=== PATIENT | female | born 1955 | race Caucasian/White ===

== ENCOUNTER 2017-12-12 22:51 | Emergency (ER) | payer MEDICAID, SELFPAY ==
--- NOTE | 2017-12-12 23:04 | RAD_ITS ---
STUDY: X-RAY - LEFT KNEE REASON FOR EXAM: Female, 62 years old. Fall TECHNIQUE: 3 view(s) of the knee. COMPARISON: None. FINDINGS: There is an intra-articular fracture of the lateral tibial plateau which extends into the proximal tibia. There is a mildly impacted fracture of the proximal fibula. There is no dislocation. There is a moderate joint effusion. There are no radiodense foreign bodies. RAD/Knee 3 Views IMPRESSION: Intra-articular fracture of the lateral tibial plateau which extends into the proximal tibia. Mildly impacted fracture of the proximal fibula. Moderate joint effusion. Electronically Signed: Bakari Parmar, at 23:08 EDT Tel , Service support ,
--- NOTE | 2017-12-13 00:06 | ED.VISSUMM ---
- ER Visit Summary Date of Service: 12/13/17 Chief Complaint: Knee injury History of Present Illness: The patient is a 62 F who presents following a fall with left knee pain. Patient holds the knee bent and cannot straighten it. Patient denies any other injuries. Patient presents during computer downtime. Physical Examination: Afebrile vital signs are stable Gen: Well-nourished well-developed Head: Normocephalic atraumatic Eyes: Perrl EOMI ENT: TMs clear no rhinorrhea moist mucous membranes Neck: Supple no lymphadenopathy no JVD nontender CVS: Regular rate rhythm no murmurs normal S1-S2 Respiratory: No distress clear to auscultation bilaterally chest nontender Abdomen: Soft nontender nondistended normal bowel sounds no masses Back: Nontender Extremity: Left knee is bent. There is an effusion. The left patella appears subluxed laterally. There is no open skin Skin: Normal color no rash Neuro: alert orientated ?3 CN II-XII intact normal strength sensation reflexes gait cerebellar Psych: Anxious and tearful Test Results: 3 view knee demonstrates a lateral tibial plateau fracture and fibular head fracture. Emergency Department Course and Treatment: Patient sees morphine for pain. The patient provided informed consent for the use of propofol so we can straighten her leg. Patient received 1 mg/kg IV push. Once adequate sedation was achieved the leg was easily straightened. The patella slid into place. Knee immobilizer was applied. Patient referred to Dr. Derek Erickson. She will be placed on crutches and made nonweightbearing. She is to use [place] for pain control. Patient will be discharged home with her family. Impression: 1. Left lateral tibial plateau fracture 2. Left fibular head fracture This note was generated with [employer] dictation software. It may contain incorrect words, spelling, and punctuation that were not noted in review of the chart prior to signing ED Disposition - Plan for ED Patient: Disposition: Home or Assisted Living Instructions: ED Fx Knee Referrals: Derek Erickson, [STAFF PHYSICIAN] - As soon as possible
== END 2017-12-13 01:35 | disposition home or self-care (01) ==
PROVIDERS: Emergency Provider Emergency Medicine; Family Provider Family Medicine; PCP Family Medicine
DX: S83.002A Unspecified subluxation of left patella, initial encounter (principal); S82.142A Displaced bicondylar fracture of left tibia, initial encounter for closed fracture; S82.492A Other fracture of shaft of left fibula, initial encounter for closed fracture; W19.XXXA Unspecified fall, initial encounter; E66.9 Obesity, unspecified
CPT/HCPCS: 27599; 73562; 96374; 96375; 99285; J7030; J2405

== ENCOUNTER → 2017-12-17 11:06 | Outpatient (CLI) | payer MEDICAID, SELFPAY ==
--- NOTE | 2017-12-17 11:24 | CT_ITS ---
Exam: Noncontrast CT of the left lower extremity. 2-D and 3-D reconstructions. HISTORY: Proximal tibial fracture. COMPARISON: Radiographs 12/13/2017. DLP: 730 CTDI: 15.3 FINDINGS: Extensive comminuted fractures are seen across the proximal tibial metaphysis as seen on radiographs and involving both tibial plateaus with mild distraction of the lateral tibial plateau fractures. Fractures pass through the base of the tibial spines. 2 mm depression of the medial tibial articular surface. No depression of the lateral tibial articular surface. Comminuted and distracted fractures are seen of the proximal fibular head without disruption of the tibiofibular articulation. Normal appearance of the visualized patella and femur. Grossly normal visualized soft tissues. CT/Extremity Lower without Contra IMPRESSION: Extensively comminuted fractures throughout the proximal tibial metaphysis and proximal fibula with mildly distracted fragments of the lateral tibial plateau and moderately distracted fragments of the fibular head. Electronically Signed: Naldo Flood MD at 19:47 EDT , Service support ,
--- NOTE | 2017-12-17 11:40 | CT_ITS ---
Exam: Noncontrast CT of the left lower extremity. 2-D and 3-D reconstructions. HISTORY: Proximal tibial fracture. COMPARISON: Radiographs 12/13/2017. DLP: 730 CTDI: 15.3 FINDINGS: Extensive comminuted fractures are seen across the proximal tibial metaphysis as seen on radiographs and involving both tibial plateaus with mild distraction of the lateral tibial plateau fractures. Fractures pass through the base of the tibial spines. 2 mm depression of the medial tibial articular surface. No depression of the lateral tibial articular surface. Comminuted and distracted fractures are seen of the proximal fibular head without disruption of the tibiofibular articulation. Normal appearance of the visualized patella and femur. Grossly normal visualized soft tissues. CT/Coronals Sag Multi Obl 3-D Rec IMPRESSION: Extensively comminuted fractures throughout the proximal tibial metaphysis and proximal fibula with mildly distracted fragments of the lateral tibial plateau and moderately distracted fragments of the fibular head. Electronically Signed: Naldo Flood MD at 19:47 EDT , Service support ,
== END ==
PROVIDERS: Family Provider Family Medicine; PCP Family Medicine; Visit Provider Physician Assistant Surgical
DX: S82.142A Displaced bicondylar fracture of left tibia, initial encounter for closed fracture (principal)
CPT/HCPCS: 73700; 76377

== ENCOUNTER → 2021-04-03 11:47 | Outpatient (CLI) | payer SELFPAY ==
--- NOTE | 2021-04-02 | ASPS_PTH ---
PATIENT: TAMY RATLIFF LOC: [facility] U#:[id number] AGE/SX: 69/F ROOM: RE04/03/[address]: Dr. Farhat Tomlinson MD : 1955 BED: DIS: SPEC #: [id number] RECD: 04/03/21 11:25 STATUS: GENESIS LIZA #: [id number] DEYANIRA: 04/02/21 00:[address]: Farhat Tomlinson DEPT: CYTOLOGY RECD BY: Emmie Ward ENTERED: 04/03/21 12:41 SP TYPE: ASPIRATION OTHR DR: Dr. Armando Rm MD Tissues: A - Thyroid gland, NOS B - Thyroid gland, NOS Procedures: Special Stain Group II Cytology Other HEADER OPERATION: Ultrasound-guided fine needle aspiration left thyroid PRE-OP DIAGNOSIS: Multinodular goiter TISSUE SUBMITTED: A ? Inferior left thyroid x12 slides, B ? Superior left thyroid x12 slides DIAGNOSIS CYTOLOGY A. Inferior left thyroid nodule, ultrasound-guided FNA (smears): Consistent with benign follicular/colloid nodule with focal cystic changes. Adequate for evaluation. See comment. B. Superior left thyroid nodule, ultrasound-guided FNA (smears): Consistent with benign follicular/colloid nodule with focal cystic changes. Adequate for evaluation. See comment. SJ:bryan 04/04/2021 COMMENT A & B. Correlation with clinical, radiologic findings and appropriate follow up are necessary. CYTOLOGY STUDY Slides are reviewed. CYTOLOGY GROSS A - Received are 12 smears labeled with the patient's name and designated per the requisition as inferior left thyroid. Submitted for staining. B - Received are 12 smears labeled with the patient's name and designated per the requisition as superior left thyroid. Submitted for staining. / bryan 04/03/2021 TC:5 CPT: 14474 x2
== END ==
PROVIDERS: PCP Family Medicine; Visit Provider Surgery
DX: E04.2 Nontoxic multinodular goiter (principal)
CPT/HCPCS: 88161; 88313

== ENCOUNTER 2022-09-25 13:35 | Emergency (ER) | payer MEDICARE, SELFPAY ==
[2022-09-25 13:35] VITALS: BP 157/87; PULSE 90; RESP 16; TEMP 36.2; O2SAT 100; BMI 22.4
--- NOTE | 2022-09-25 14:05 | ED.VIS.LOWEX ---
HPI History of Present Illness Chief Complaint: Lower Extremity Injury Detail of Chief Complaint: Injury to left leg Informant: patient Narrative Narrative: Patient presents the emergency department after sustaining an injury to her left leg. Patient states that she was coming down the basement steps when she think she may have missed a step and fell forward striking her left ruiz on the concrete pad. She did not strike her head. She tried to catch herself and sustained an abrasion to the pad of her right hand but it is not painful. Patient thinks she had a tetanus shot in 2018 when she had left knee surgery. Patient states that she was able to put some weight on the left leg but has crutches at home so she started using those. Patient states that she had 3 fractures in her left knee that required surgery with plates and screws in 2018. [facility] Medical History (Updated 09/25/22 @ 14:[address] Andrae Romero, ) Broken leg GERD (gastroesophageal reflux disease) Hypertension Home Medications lisinopril 5 mg tablet 5 mg PO DAILY 09/25/22 [History Last Taken Unknown] omeprazole 20 mg capsule,delayed release 20 mg PO DAILY 09/25/22 [History Last Taken Unknown] Allergy/AdvReac Type Severity Reaction Status Date / Time adhesive tape AdvReac Rash Verified 09/25/22 13:37 codeine AdvReac Nausea Verified 09/25/22 13:37 Social History Smoking Status: Never smoker ROS ROS ED Review of Systems ROS Unobtainable: other Constitutional Constitutional ED: Reports lethargy; Denies chills, fever(s), sweats or weight loss Eyes Eyes: Denies blurry vision, change in vision or diplopia ENT ENT ED: Denies rhinorrhea or sore throat Cardiovascular Cardiovascular: Denies chest pain, orthopnea or racing heartbeat Respiratory/Chest Respiratory/Chest: Denies cough, dyspnea, dyspnea on exertion, orthopnea or sputum Gastrointestinal Gastrointestinal: Denies abdominal pain, diarrhea, nausea or vomiting Genitourinary Genitourinary ED: Denies dysuria, hematuria or urinary frequency Musculoskeletal Musculoskeletal: Reports other Details: Left leg pain/injury ; Denies arthralgias, back pain, myalgias or neck pain Integumentary Denies abscess, Abrasions or rash Neurologic Neurologic: Denies headache(s) or weakness Psychiatric Psychiatric: Denies anxiety, depression or suicidal thoughts Endocrine Endocrinology: Denies polydipsia, polyphagia or polyuria Hematologic/Lymphatic Hematologic/Lymphatic: Denies easy bleeding, easy bruising or lymphadenopathy Allergic/Immunologic Allergic/Immunologic ED: Denies mouth swelling, tongue swelling or urticaria EXAM Physical Exam Const Vital Signs: 09/25/22 13:35 Temperature 97.2 F L Temperature Source Temporal Pulse Rate 90 Respiratory Rate 16 Blood Pressure 157/87 H Blood Pressure Mean 110 Pulse Ox 100 Positive well nourished and well developed General Appearance ED: well developed and NAD HEENT Reports TM's clear and moist mucous membranes normocephalic and atraumatic; Negative for trauma or tenderness Tympanic Membrane ED: Yes TM's clear Eyes PERRL and EOMs intact bilaterally General Eye ED: Negative for pale conjunctiva or scleral icterus Neck no lymphadenopathy, supple and no JVD General: Negative for tenderness Chest Wall inspection of chest normal and palpation of chest normal Chest: Negative for tenderness Resp normal respiratory effort and clear to auscultation bilaterally Effort and Inspection: Negative for respiratory distress or pain with movement Auscultation: Negative for rhonchi, wheezes or diminished lung sounds Cardio regular rate, regular rhythm, S1 normal heart sound, S2 normal heart sound and no murmurs Peripheral Pulses: pulses 2+ throughout GI normal to inspection, nondistended, normoactive bowel sounds, soft to palpation, non-tender, non-distended and no masses Back/Spine no CVA tenderness and no thoracic nor lumbar tenderness Extremity normal to inspection Extremity Narrative: Left leg-patient has superficial abrasion over the proximal anterior tibia with soft tissue swelling noted. She is diffusely tender over the anterior tibia. No obvious deformity. She is neurovascular intact distally. No pain at the knee. Good range of motion flexion extension of the knee. General Extremety ED: Negative for edema General Extremity: Negative for edema Neuro oriented x3, CN's II-XII intact bilaterally, no sensory deficits noted and gait normal Sensorium / Orientation: awake, alert, oriented to person, oriented to place and oriented to time Motor Exam: strength 5/5 throughout and strength abnormal Psych mental status grossly normal Skin no rashes or lesions noted and no wounds MDM MDM MDM Narrative Medical decision making narrative: Patient advised to ice and elevate extremity. She has crutches for comfort. Patient advised to use ibuprofen or Tylenol for discomfort. She is to return if increasing pain, redness, swelling, or condition should worsen anyway. Lab Data Attestation: I reviewed the patient's lab results. Radiography Diagnostic Testing: Clinical Impression(s) from Imaging Studies Tibia/Fibula X-Ray 09/25/22 14:15 IMPRESSION: No acute fracture is seen. Status post ORIF of the tibial plateau fracture. Electronically Signed: Tj Leblanc MD at 14:46 EST , 2 view x-rays of left tibia and fibula obtained interpreted by myself as no acute fractures. She was noted to have prior ORIF to the proximal tibia. Radiology in agreement. Discharge Plan Triage Chief Complaint: Lower Extremity Injury ED Provider: Andrae Romero Dx/Rx/DC Orders Clinical Impression: Contusion of left leg Instructions: ED Contusion, Lower Extremity Prescriptions: No Action omeprazole 20 mg capsule,delayed release(DR/EC) 20 mg PO DAILY Label Comments: Take 2 capsules by mouth once daily. lisinopril 5 mg tablet 5 mg PO DAILY Label Comments: Take 1 tablet by mouth once daily. Primary Care Provider: Armando Rm Referrals: Armando Rm MD [Primary Care Provider] - 5-7 Days Disposition Disposition: Home, Self Care
--- NOTE | 2022-09-25 14:15 | RAD_ITS ---
STUDY: X-RAY - LEFT TIBIA AND FIBULA REASON FOR EXAM: Female, 67 years old. Pain following injury. TECHNIQUE: 3 view(s) of the tibia and fibula were obtained. COMPARISON: Comparison is made with prior study 12/12/2017. FINDINGS: The patient is status post open reduction and fixation of the tibial plateau fracture with screw and sideplate fixation device. There is good alignment. No acute fractures seen. Normal visualized fibula. The soft tissue structures are unremarkable. RAD/Tibia & Fibula 2 Views IMPRESSION: No acute fracture is seen. Status post ORIF of the tibial plateau fracture. Electronically Signed: Tj Leblanc MD at 14:46 EST ,
== END 2022-09-25 15:10 | disposition home or self-care (01) ==
PROVIDERS: Emergency Provider Emergency Medicine; PCP Family Medicine; Visit Provider Emergency Medicine
DX: S80.12XA Contusion of left lower leg, initial encounter (principal); I10 Essential (primary) hypertension; K21.9 Gastro-esophageal reflux disease without esophagitis; W10.9XXA Fall (on) (from) unspecified stairs and steps, initial encounter
CPT/HCPCS: 73590; 99282

== ENCOUNTER → 2024-05-18 | Outpatient (CLI) | payer MEDICARE, SELFPAY ==
--- NOTE | 2024-05-18 15:02 | NEURO ---
NCS and/or EMG Patient Report Ordering Doctor: Armando Rm DATE OF SERVICE: 05/18/24 Clinical Summary: 68 year old female patient with symptoms of numbness, tingling, and pain in the right hand. Nerve Conduction Studies Summary: The right median-D2 SNAP was absent. The right median-hernandez response amplitude was reduced. The right median-APB CMAP amplitude was reduced. The right median motor conduction velocity was reduced. Needle Examination Summary: Needle examination of select muscles of the right upper extremity demonstrated increased insertional activity and spontaneous activity (positive sharp waves and fibrillation potentials) in the right abductor pollicis brevis muscle. There was a higher proportion of motor unit action potentials with reduced recruitment, increased amplitude, increased duration, and polyphasia in the right abductor pollicis brevis muscle. 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 Multi Select Codes Neurology Neurology Interp Codes: 76162-85 Musc test done w/n test comp (interp) (1) and 69481-61 Nrv cndj tst 5-6 studies (interp)
== END | disposition home or self-care (01) ==
PROVIDERS: PCP Family Medicine; Referring Provider Family Medicine; Visit Provider Family Medicine
DX: R20.0 Anesthesia of skin (principal); R20.2 Paresthesia of skin
CPT/HCPCS: 95886; 95909